=== PATIENT | male | born 1955 | race Caucasian/White ===

== ENCOUNTER 2024-04-23 12:53 | Emergency (ER) | payer MEDICARE ==
[2024-04-23 13:30] LABS: Hematocrit 44.2 % (42.0-52.0); Hemoglobin 14.7 g/dL (14.0-18.0); Mean Corpuscular HGB CONC 33.3 g/dL (32.0-36.0); Mean Corpuscular Hemoglobin 31.3 pg (27.0-31.0); Mean Platelet Volume 9.6 fL (7.4-10.4); Platelet Count 242 10x3/uL (130-400); RBC Distribution Width 13.4 % (11.5-14.5)
[2024-04-23 13:50] LABS: ALT (SGPT) 27 U/L (8-55); AST (SGOT) 16 U/L (5-34); Albumin 3.5 g/dL (3.4-4.8); Alkaline Phosphatase 73 U/L (40-110); Anion Gap 8 mmol/L (10-20); BUN (Urea Nitrogen) 13 mg/dL (8.4-25.7); Bilirubin, Total 0.6 mg/dL (0.2-1.2); Calc. Creatinine Clearance 0 mL/min (70-130); Carbon Dioxide 25 mmol/L (23-31); Chloride 110 mmol/L (98-107); Estimated GFR 84; Globulin 2.8 g/dL (2.4-3.5); Glucose 90 mg/dL (80-115); Potassium 4.4 mmol/L (3.5-5.1); Protein, Total 6.3 g/dL (5.8-8.1); Sodium 139 mmol/L (136-145)
[2024-04-23 13:55] LABS: Band 3 % (5-11); Eosinophils 2 % (0-10); Lymphocytes 45 % (21-51); Monocytes 6 % (0-10); Neutrophil 41 % (42-75); Platelet Adequacy Comment Platelets Normal; RBC Morphology Within Normal Limits; Reactive Lymphocytes 1 % (0-10)
[2024-04-23 13:57] LABS: Troponin I Less than 0.010 ng/mL (< 0.028)
[2024-04-23] MEDS ORDERED: Ketorolac Tromethamine 30 MG (1 mL) VIAL ONE (14:06)
[2024-04-23] MEDS ORDERED: Meclizine HCl 25 MG TAB ONE (14:06)
== END 2024-04-23 14:37 | disposition home or self-care (01) ==
LOC: ERS 12:53
DX: R42 Dizziness and giddiness (principal); R54 Age-related physical debility; I25.2 Old myocardial infarction; Z55.6 Problems related to health literacy
CPT/HCPCS: 71045; 80053; 84484; 85025; 93005; 96374; 99284; J1885; 36415